=== PATIENT | male | born 1950 | race Caucasian/White ===

== ENCOUNTER → 2023-07-19 10:21 | Outpatient (REF) | payer MEDICARE, OTHER, SELFPAY | LOC: RAD 10:21 | PROVIDERS: ATTENDING PHYSICIAN Radiology Diagnostic Radiology; FAMILY PHYSICIAN Internal Medicine | DX: S05.50XA Penetrating wound with foreign body of unspecified eyeball, initial encounter (principal) | CPT/HCPCS: 70030 ==

== ENCOUNTER → 2023-08-02 11:26 | Outpatient (REF) | payer MEDICARE, OTHER, SELFPAY | LOC: PAVMRI 11:26 | PROVIDERS: ATTENDING PHYSICIAN Internal Medicine Cardiovascular Disease; FAMILY PHYSICIAN Internal Medicine | DX: I71.9 Aortic aneurysm of unspecified site, without rupture (principal) | CPT/HCPCS: 71555; A9585 ==

== ENCOUNTER → 2024-08-06 07:37 | Outpatient (REF) | payer MEDICARE, OTHER, SELFPAY | LOC: PAVMRI 07:37 | PROVIDERS: ATTENDING PHYSICIAN Internal Medicine Cardiovascular Disease; FAMILY PHYSICIAN Internal Medicine | DX: I77.810 Thoracic aortic ectasia (principal); I71.9 Aortic aneurysm of unspecified site, without rupture | CPT/HCPCS: 71555; A9585 ==

== ENCOUNTER → 2024-08-27 07:51 | Outpatient (REF) | payer MEDICARE, OTHER, SELFPAY | LOC: HWRAD 07:51 | PROVIDERS: ATTENDING PHYSICIAN Internal Medicine Cardiovascular Disease; FAMILY PHYSICIAN Internal Medicine | DX: I48.0 Paroxysmal atrial fibrillation (principal); Z51.81 Encounter for therapeutic drug level monitoring | CPT/HCPCS: 71046 ==

== ENCOUNTER → 2025-02-09 09:18 | Outpatient (REF) | payer MEDICARE, OTHER, SELFPAY ==
[2025-02-09 11:25] LABS: Hematocrit 41.9 % (39.0-52.0); Hemoglobin 14.1 g/dL (13.0-18.0); Mean Corp Hgb Conc. 33.7 g/dL (33.0-37.0); Mean Corpuscular Volume 93.3 fL (80.0-94.0); Nucleated Red Blood Cells % 0 % (-); Platelet Count 154 10^3/uL (130-400); Red Cell Dist. Width 13.7 % (11.5-14.5)
[2025-02-09 11:31] LABS: Blood Urea Nitrogen 19 mg/dl (9-20); Calcium 9.0 mg/dl (8.4-10.2); Carbon Dioxide 32 mmol/L (22-30); Chloride 104 mmol/L (98-107); Glucose 85 mg/dl (70-99); Potassium 4.6 mmol/L (3.5-5.1); Sodium 139 mmol/L (135-145); eGFR > 60.00
== END ==
LOC: SDSPAT 09:18
PROVIDERS: ATTENDING PHYSICIAN Orthopaedic Surgery Hand Surgery; FAMILY PHYSICIAN Internal Medicine
DX: Z01.818 Encounter for other preprocedural examination (principal)
CPT/HCPCS: 36415; 80048; 85025

== ENCOUNTER 2025-02-24 06:16 | Day surgery (SDC) | payer MEDICARE, OTHER, SELFPAY ==
[2025-02-09 14:09] VITALS: BMI 35.4
[2025-02-24] VITALS (9 sets, daily range): BP systolic 108–141; BP diastolic 48–75; BMI 35.4
[2025-02-24] MEDS: CELEBREX 200 MG PO (08:03)
[2025-02-24] MEDS: NORMOSOL-R/PLASMALYTE-A 1000 IV (08:03)
[2025-02-24] MEDS: TYLENOL 1000 MG PO (08:03)
== END 2025-02-24 12:49 | disposition home or self-care (01) ==
LOC: SDS 06:16
PROVIDERS: ATTENDING PHYSICIAN Orthopaedic Surgery Hand Surgery; FAMILY PHYSICIAN Internal Medicine
DX: M75.111 Incomplete rotator cuff tear or rupture of right shoulder, not specified as traumatic (principal); S46.219A Strain of muscle, fascia and tendon of other parts of biceps, unspecified arm, initial encounter; X58.XXXA Exposure to other specified factors, initial encounter; M75.41 Impingement syndrome of right shoulder
CPT/HCPCS: 29827; C1713; C1763